=== PATIENT | female | born 1980 | race Caucasian/White ===

== ENCOUNTER 2018-05-22 09:39 | Emergency (ER) | payer BC, OTHER ==
[2018-05-22 09:58] VITALS: BMI 42.9
--- NOTE | 2018-05-22 10:11 | PDOC ---
History of Present Illness - General Chief Complaint: Pain Stated Complaint: ABD PAIN Time Seen by Provider: 05/22/18 10:02 History Source: Patient - History of Present Illness Timing/Duration: reports: intermittent Quality: reports: severe, sharpness Past History - Past Medical History Allergies/Adverse Reactions: Allergies Allergy/AdvReac Type Severity Reaction Status Date / Time No Known Allergies Allergy Verified 05/22/18 09:55 Home Medications: Ambulatory Orders Hydrochlorothiazide 25 mg PO DAILY #30 tablet 05/22/18 Hydrocodone/Ibuprofen [VICOPROFEN 7.5/200 mg [NF MEDICATION]] 1 tab PO Q6H #8 tablet MDD 4 doses 05/22/18 Ibuprofen [Motrin -] 800 mg PO Q6H #30 tablet 05/22/18 Metoprolol Succinate [Toprol Xl] 100 mg PO DAILY #30 tab.er.24h 05/22/18 Metoprolol Tartrate [Lopressor -] 50 mg PO BID 05/22/18 COPD: No HTN: Yes (last took BP med on monday) - Immunization History Immunization Up to Date: Yes - Suicide/Smoking/Psychosocial Hx Smoking History: Never smoked Review of Systems - Review of Systems Constitutional: No: Chills, Fever ABD/GI: No: Blood Streaked Bowels, Constipated, Diarrhea, Nausea, Rectal Bleeding, Tarry Stools : No: Burning, Dysuria, Discharge, Frequency, Flank Pain, Hematuria Musculoskeletal: No: Back Pain *Physical Exam - Vital Signs Last Vital Signs Temp Pulse Resp BP Pulse Ox 97.9 F 72 18 225/125 H 100 05/22/18 09:56 05/22/18 09:56 05/22/18 09:56 05/22/18 09:56 05/22/18 09:56 - Physical Exam General Appearance: Yes: Appropriately Dressed. No: Apparent Distress HEENT: positive: Normal Voice Neck: positive: Supple Female Pelvic Exam: positive: normal external exam, adnexal tenderness (on the R ), vaginal bleeding. negative: CMT Gastrointestinal/Abdominal: positive: Tender (poorly localized ttp to suprapubic area, NT over mcburneys) Integumentary: positive: Dry, Warm Neurologic: positive: Fully Oriented, Alert, Normal Mood/Affect Moderate Sedation - Procedure Monitoring Vital Signs: Procedure Monitoring Vital Signs Temperature 97.9 F 05/22/18 09:56 Pulse Rate 72 05/22/18 09:56 Respiratory Rate 18 05/22/18 09:56 Blood Pressure 225/125 H 05/22/18 09:56 O2 Sat by Pulse Oximetry (%) 100 05/22/18 09:56 ED Treatment Course - LABORATORY CBC & Chemistry Diagram: 05/22/18 10:40 05/22/18 10:40 Medical Decision Making - Medical Decision Making 05/22/18 10:07 38 yo F, obesity, HTN, non-compliant w/ meds, s/p removal of ? intrauterine polyp 02/20, currently on OCP (to regulate menses per pt), here w/ severe, intermittent R pelvic pain x 4 days. States she is currently on her menses and usually has some cramping but that current pain more severe and not improving w / OTC meds. Had 1 e/o n/v this am. Denies abnl vag dc, foul odor, dysuria, f/ c. No change in BM. Sexually active w longtime male partner. No h/o STDs per pt See exam Pelvic pain R/o torsion vs PID vs UTI vs preg (less likely as pt on menses and taking OCPs) vs appy -pain control -labs -pelvic US Hypertension Non-complaint w/ meds BP sig elevated at triage Pt asymptomatic from BP standpoint -will manage w/ home meds and reassess 05/22/18 12:21 Labs and US read as normal. Given pt's initial level of discomfort, will scan abd r/o appy at this time 05/22/18 14:52 CT a/p unremarkable. Pt reports that abd pain has since resolved and now requesting food. Rpt BP now 188/118, pt c/o JOHNSON at this time. Will scan head and continue to manage BP in ED 05/22/18 15:46 CTH read as neg. Rpt BP now 211/108. Discussed w/ Dr Sears who rec giving an extra dose of pt's home meds and discuss f/u w/ pt's PMD (Dr Enoc Awan in [place]) 05/22/18 16:01 Case d/w Dr Awan, states he has been limited in medications he can use to treat pt's HTN 2/2 patient's plan on starting fertility treatment in near future. Per MD, BP control is priority at this point and wants pt started on 25 mg HCTZ QD and toprol XL 100 mg QD. Wants pt to f/u with him tomorrow. Of note, pt reports that JOHNSON resolved once she ate a sandwich in ED. Has since been given 2nd dose of metoprolol. Will reassess. Anticipate dc w/ PMD f/u this week. 05/22/18 16:41 Final BP 175/111. Pt asymptomatic at this time and appears well. Will dc to start new BP meds and f/u with PMD in the am. Strict return precautions given *DC/Admit/Observation/Transfer Diagnosis at time of Disposition: Pelvic pain, Elevated blood pressure reading - Discharge Dispostion Disposition: HOME Condition at time of disposition: Improved - Prescriptions Prescriptions: Hydrochlorothiazide 25 mg PO DAILY #30 tablet Hydrocodone/Ibuprofen [VICOPROFEN 7.5/200 mg [NF MEDICATION]] 1 tab PO Q6H #8 tablet MDD 4 doses Ibuprofen [Motrin -] 800 mg PO Q6H #30 tablet Metoprolol Succinate [Toprol Xl] 100 mg PO DAILY #30 tab.er.24h - Referrals Referrals: Enoc Awan [Primary Care Provider] - - Patient Instructions Printed Discharge Instructions: DI for High Blood Pressure, DI for Pelvic Pain Additional Instructions: The cause of your pelvic pain is unclear but may be due to your menses Your labs, ultrasound and CAT scan were all normal Please take motrin as directed for pain. If you need further pain relief, take 1 vicoprofen (which has hydrocodone and about 200mg in it) Follow up with your [employer] and PMD Regarding your blood pressure, you were started on new meds as discussed with your PMD who wants you to call office tomorrow for an appointment this week Return to ER for worsening of symptoms - Post Discharge Activity Forms/Work/School Notes: Back to Work
[2018-05-22 10:45] LABS: BASO % 0.9 % (0-2.0); HEMATOCRIT 33.6 % (32.4-45.2); LYMPH % 21.1 % (8-40); MCH 21.2 pg (25.7-33.7); MCHC 32.8 g/dl (32.0-36.0); MEAN CELL VOLUME 64.5 fl (80-96); MEAN PLT VOLUME 8.6 fl (7.5-11.1); MONO % 4.8 % (3.8-10.2); NEUT % 71.2 % (42.8-82.8); PLATELET COUNT 295 K/MM3 (134-434); RBC 5.22 M/mm3 (3.60-5.2); RDW 17.5 % (11.6-15.6); WHITE BLOOD COUNT 7.6 K/mm3 (4.0-10.0)
[2018-05-22] MEDS ORDERED: KETOROLAC TROMETHAMINE 60 MG/2 ML VIAL IVPUSH ONE (10:47)
[2018-05-22 10:48] LABS: URINE APPEARANCE CLOUDY; URINE BILIRUBIN NEGATIVE (<2.0 mg/dL); URINE COLOR RED; URINE GLUCOSE (UA) NEGATIVE (NEGATIVE); URINE KETONE NEGATIVE (NEGATIVE); URINE LEUK ESTERASE NEGATIVE (NEGATIVE); URINE NITRITE NEGATIVE (NEGATIVE); URINE PROTEIN 2+ (NEGATIVE); URINE UROBILINOGEN NEGATIVE mg/dL (0.2-1.0)
[2018-05-22] MEDS ORDERED: morphine CARPU-JECT 4 MG/1 ML DISP.SYRIN IM ONE (10:48)
[2018-05-22 10:50] LABS: HCG,QUALITATIVE URINE Negative
[2018-05-22] MEDS ORDERED: morphine SULFATE 4 MG/ML VIAL ONE (10:51)
[2018-05-22] MEDS ORDERED: KETOROLAC TROMETHAMINE 60 MG/2 ML VIAL ONE (10:52)
[2018-05-22 10:54] LABS: URINE MUCUS FEW; YEAST RARE
[2018-05-22 11:24] LABS: ALBUMIN 3.6 g/dl (3.4-5.0); ALK PHOS 69 U/L (45-117); ANION GAP 7 MMOL/L (8-16); BILIRUBIN,TOTAL 0.4 mg/dL (0.2-1); BLOOD UREA NITROGEN 10 mg/dL (7-18); CALCIUM 8.7 mg/dL (8.5-10.1); CHLORIDE 107 mmol/L (98-107); CO2 25 mmol/L (21-32); GLUCOSE,RANDOM 99 mg/dL (74-106); POTASSIUM 4.1 mmol/L (3.5-5.1); SGOT/AST 13 U/L (15-37); SGPT/ALT 18 U/L (13-61); SODIUM 138 mmol/L (136-145); TOT PROT 7.4 g/dl (6.4-8.2)
[2018-05-22] MEDS ORDERED: ONDANSETRON *ODT* 4 MG TABLET SL ONE (12:14)
[2018-05-22] MEDS ORDERED: METOPROLOL TARTRATE 50 MG TABLET (FP) PO ONE ×2 (12:14→15:45)
[2018-05-22] MEDS ORDERED: ONDANSETRON 4 MG/2 ML VIAL ONE (12:29)
[2018-05-22] MEDS ORDERED: METOPROLOL TARTRATE 50 MG TABLET (FP) ONE ×2 (12:29→16:04)
[2018-05-22 12:39] LABS: ANISOCYTOSIS 2+; MACROCYTOSIS 0; PLATELET ESTIMATE NORMAL
[2018-05-22] MEDS ORDERED: ONDANSETRON 4 MG/2 ML VIAL IVPUSH ONE (13:05)
[2018-05-22] MEDS ORDERED: METOCLOPRAMIDE HCL INJECTION 10 MG/2 ML VIAL IVPB ONE (15:34)
[2018-05-22] MEDS ORDERED: METOCLOPRAMIDE HCL INJECTION 10 MG/2 ML VIAL ONE (16:03)
[2018-05-22 16:56] VITALS: BP 175/111; PULSE 64; TEMP 97.8
== END 2018-05-22 16:56 | disposition home or self-care (01) ==
LOC: JER 09:39
PROC: 3E0333Z Introduction of Anti-inflammatory into Peripheral Vein, Percutaneous Approach (ICD-10-PCS; principal; 2018-05-22)
PROC: 3E023NZ Introduction of Analgesics, Hypnotics, Sedatives into Muscle, Percutaneous Approach (ICD-10-PCS; 2018-05-22)
PROC: 3E033GC Introduction of Other Therapeutic Substance into Peripheral Vein, Percutaneous Approach (ICD-10-PCS; 2018-05-22)
DX: I10 Essential (primary) hypertension (principal); E66.9 Obesity, unspecified
CPT/HCPCS: 36415; 70450-TC; 74177-TC; 76830-TC; 80053; 81003; 81015; 84703; 85025; 87086; 87491; 87591; 99282-25

== ENCOUNTER 2021-08-11 16:30 | Emergency (ER) | payer BC ==
[2021-08-11 17:15] VITALS: BP 126/83; PULSE 97; TEMP 99.6; BMI 43.7
[2021-08-11] MEDS ORDERED: SODIUM CHLORIDE 1,000 ML IV STA (18:47)
[2021-08-11] MEDS ORDERED: METOCLOPRAMIDE HCL INJECTION 10 MG/2 ML VIAL IM ONE (18:47)
[2021-08-11] MEDS ORDERED: METOCLOPRAMIDE HCL INJECTION 10 MG/2 ML VIAL ONE (19:22)
[2021-08-11 20:02] LABS: PH,URINE 5.5 (5.0-8.0); URINE APPEARANCE CLEAR; URINE BILIRUBIN NEGATIVE (NEGATIVE); URINE COLOR YELLOW; URINE GLUCOSE (UA) NEGATIVE (NEGATIVE); URINE KETONE NEGATIVE (NEGATIVE); URINE LEUK ESTERASE NEGATIVE (NEGATIVE); URINE NITRITE NEGATIVE (NEGATIVE); URINE PROTEIN NEGATIVE (NEGATIVE); URINE UROBILINOGEN 0.2 mg/dL (0.2-1.0)
[2021-08-11 20:05] LABS: HCG,QUALITATIVE URINE Negative
[2021-08-11 20:09] LABS: BASO % 0.6 % (0-2.0); EOS % 1.3 % (0-4.5); HEMATOCRIT 33.7 % (32.4-45.2); LYMPH % 20.6 % (8-40); MCH 22.8 pg (25.7-33.7); MCHC 32.6 g/dl (32.0-36.0); MEAN CELL VOLUME 70.1 fl (80-96); MEAN PLT VOLUME 8.3 fl (7.5-11.1); MONO % 5.3 % (3.8-10.2); NEUT % 72.2 % (42.8-82.8); PLATELET COUNT 239 10^3/uL (134-434); RDW 17.1 % (11.6-15.6); WHITE BLOOD COUNT 8.1 K/mm3 (4.0-10.0)
[2021-08-11 20:33] LABS: CALCIUM 8.6 mg/dL (8.5-10.1)
[2021-08-11 20:34] LABS: ALBUMIN 3.1 g/dl (3.4-5.0); BLOOD UREA NITROGEN 12.8 mg/dL (7-18)
[2021-08-11 20:37] LABS: CREATININE 0.9 mg/dL (0.55-1.3)
[2021-08-11 20:38] LABS: BILIRUBIN,TOTAL 0.4 mg/dL (0.2-1); TOT PROT 6.8 g/dl (6.4-8.2)
[2021-08-11 20:56] LABS: PLATELET ESTIMATE ADEQUATE
== END 2021-08-11 21:03 | disposition home or self-care (01) ==
LOC: JER 16:30
PROC: 3E0337Z Introduction of Electrolytic and Water Balance Substance into Peripheral Vein, Percutaneous Approach (ICD-10-PCS; principal; 2021-08-11)
PROC: 3E023GC Introduction of Other Therapeutic Substance into Muscle, Percutaneous Approach (ICD-10-PCS; 2021-08-11)
DX: A08.4 Viral intestinal infection, unspecified (principal)
CPT/HCPCS: 36415; 80053; 81003; 83690; 84703; 85025; 99284-25

== ENCOUNTER 2021-11-04 04:07 | Day surgery (SDC) | payer BC ==
[2021-11-02 10:42] VITALS: BMI 42.9
[~2021-11-04 04:07] MED LIST: ceFAZolin SODIUM 1 GM VIAL IVPB ONE
[2021-11-04] MEDS ORDERED: ACETAMINOPHEN 325 MG TABLET (FP) PO PRN (12:43)
[2021-11-04] MEDS ORDERED: IBUPROFEN 400 MG TABLET (FP) PO PRN (12:43)
[2021-11-04] MEDS ORDERED: FENTANYL CITRATE/PF 50 MCG/ML VIAL ONE ×4 (13:05→14:37)
[2021-11-04] MEDS ORDERED: PROPOFOL 20 ML ONE ×2 (13:05→13:30)
[2021-11-04] MEDS ORDERED: MIDAZOLAM HCL 2 MG/2 ML SINGLE DOSE VIAL ONE (13:06)
[2021-11-04] MEDS ORDERED: ceFAZolin SODIUM 1 GM VIAL IVPB ONE (13:20)
[2021-11-04] MEDS ORDERED: PROMETHAZINE HCL 25 MG/1 ML VIAL IVPB PRN (14:02)
[2021-11-04] MEDS ORDERED: LACTATED RINGERS SOLUTION 1,000 ML IV SCH (14:15)
[2021-11-04 17:46] VITALS: BP 122/70; PULSE 89; TEMP 97.9
== END 2021-11-04 16:30 | disposition home or self-care (01) ==
LOC: JASU-SURG 04:07
PROVIDERS: ATTEND Obstetrics & Gynecology
PROC: 0UDB8ZX Extraction of Endometrium, Via Natural or Artificial Opening Endoscopic, Diagnostic (ICD-10-PCS; principal; 2021-11-04 13:00)
DX: N92.1 Excessive and frequent menstruation with irregular cycle (principal)
CPT/HCPCS: 88305-TC; 94760

== ENCOUNTER 2022-01-13 19:43 | Emergency (ER) | payer BC ==
[2022-01-13 19:59] VITALS: BP 147/88; PULSE 80; RESP 19; TEMP 97.8; BMI 42.9
[2022-01-13] MEDS ORDERED: LACTATED RINGERS SOLUTION 1,000 ML/1,000 ML INFUS.BAG IV STA (21:33)
[2022-01-13 22:20] LABS: BASO % 0.4 % (0-2.0); EOS % 1.8 % (0-4.5); HEMATOCRIT 29.1 % (32.4-45.2); HEMOGLOBIN 9.2 GM/dL (10.7-15.3); MCHC 31.6 g/dl (32.0-36.0); MEAN PLT VOLUME 8.4 fl (7.5-11.1); MONO % 9.7 % (3.8-10.2); NEUT % 64.1 % (42.8-82.8); PLATELET COUNT 250 10^3/uL (134-434); RBC 4.78 M/mm3 (3.60-5.2); RDW 19.3 % (11.6-15.6); WHITE BLOOD COUNT 5.4 K/mm3 (4.0-10.0)
[2022-01-13 22:21] LABS: MCH 19.3 pg (25.7-33.7)
[2022-01-13] MEDS ORDERED: ONDANSETRON 4 MG/2 ML VIAL IVPUSH ONE (22:27)
[2022-01-13 22:29] LABS: INR 1.06 (0.83-1.09); PROTHROMBIN TIME (PATIENT) 12.2 SEC (9.7-13.0)
[2022-01-13 22:31] LABS: ACTIVATED PTT 24.6 SECONDS (25.2-36.5)
[2022-01-13] MEDS ORDERED: ONDANSETRON 4 MG/2 ML VIAL ONE (22:34)
[2022-01-13] MEDS ORDERED: SODIUM CHLORIDE 1,000 ML IV ONE (22:40)
[2022-01-13 22:43] LABS: CALCIUM 8.7 mg/dL (8.5-10.1)
[2022-01-13 22:44] LABS: ALBUMIN 3.2 g/dl (3.4-5.0); BLOOD UREA NITROGEN 6.4 mg/dL (7-18)
[2022-01-13 22:48] LABS: CREATININE 0.9 mg/dL (0.55-1.3)
[2022-01-13 22:49] LABS: BILIRUBIN,TOTAL 0.3 mg/dL (0.2-1); TOT PROT 6.8 g/dl (6.4-8.2)
[2022-01-13 23:21] LABS: ANISOCYTOSIS 3+; MACROCYTOSIS 1+; OVALOCYTE 2+
== END 2022-01-13 23:40 | disposition home or self-care (01) ==
LOC: JER 19:43
PROC: 3E033GC Introduction of Other Therapeutic Substance into Peripheral Vein, Percutaneous Approach (ICD-10-PCS; principal; 2022-01-13)
DX: R19.7 Diarrhea, unspecified (principal)
CPT/HCPCS: 36415; 80053; 84703; 85025; 85610; 85730; 86850; 86900; 86901; 87045; 87046; 99284-25

== ENCOUNTER 2024-03-29 20:23 | Emergency (ER) | payer BC ==
[2024-03-29 20:33] VITALS: RESP 18; TEMP 98.5; BMI 48.0
[2024-03-29] MEDS ORDERED: IBUPROFEN 400 MG TABLET (FP) PO ONE (21:25)
[2024-03-29] MEDS: IBUPROFEN 400 MG TABLET (FP) PO ONE (21:42)
[2024-03-29 21:52] LABS: BASO % 1.1 % (0-2.0); EOS % 1.2 % (0-4.5); HEMATOCRIT 29.5 % (32.4-45.2); HEMOGLOBIN 9.4 GM/dL (10.7-15.3); LYMPH % 26.5 % (8-40); MCH 22.3 pg (25.7-33.7); MEAN CELL VOLUME 69.8 fl (80-96); MONO % 4.9 % (3.8-10.2); NEUT % 66.3 % (42.8-82.8); PLATELET COUNT 362 10^3/uL (134-434); RBC 4.22 M/mm3 (3.60-5.2); WHITE BLOOD COUNT 10.2 K/mm3 (4.0-10.0)
[2024-03-29 21:54] LABS: EPI CELLS 10 /uL (0-25.1); HYALINE CASTS 0 /uL (0-3.1); URINE APPEARANCE CLOUDY; URINE BACTERIA 29 /uL (0-1359); URINE BILIRUBIN NEGATIVE (NEGATIVE); URINE COLOR RED; URINE GLUCOSE (UA) NEGATIVE (NEGATIVE); URINE KETONE NEGATIVE (NEGATIVE); URINE LEUK ESTERASE TRACE (NEGATIVE); URINE NITRITE NEGATIVE (NEGATIVE); URINE PROTEIN TRACE (NEGATIVE); URINE RBC 10993 /uL (0-23.9); URINE UROBILINOGEN 0.2 mg/dL (0.2-1.0); URINE WBC 30 /uL (0-25.8)
[2024-03-29] MEDS ORDERED: ACETAMINOPHEN INJECTION 100 ML ONE (21:56)
[2024-03-29 21:57] LABS: INR 1.08 (0.83-1.09); PROTHROMBIN TIME (PATIENT) 12.4 SEC (9.7-13.0)
[2024-03-29] MEDS: ACETAMINOPHEN 1000 MG/100 ML BAG IVPB ONE (21:57)
[2024-03-29 22:28] LABS: POTASSIUM 4.2 mmol/L (3.5-5.1)
[2024-03-29 22:30] LABS: ALBUMIN 3.5 g/dl (3.4-5.0); CALCIUM 9.2 mg/dL (8.5-10.1)
[2024-03-29 22:31] LABS: BLOOD UREA NITROGEN 14.8 mg/dL (7-18)
[2024-03-29 22:35] LABS: BILIRUBIN,TOTAL 0.2 mg/dL (0.2-1); TOT PROT 7.1 g/dl (6.4-8.2)
[2024-03-29 23:06] LABS: HIV INTERPRETATION NEGATIVE (NEGATIVE)
[2024-03-30 01:23] VITALS: BP 123/66
[2024-03-30] MEDS ORDERED: KETOROLAC TROMETHAMINE 30 MG/1 ML VIAL ONE (01:27)
[2024-03-30 01:45] VITALS: PULSE 79
[2024-03-30] MEDS: KETOROLAC TROMETHAMINE 30 MG/1 ML VIAL IVPUSH ONE (01:51)
== END 2024-03-30 03:57 | disposition home or self-care (01) ==
LOC: JER 20:23
PROC: 3E033NZ Introduction of Analgesics, Hypnotics, Sedatives into Peripheral Vein, Percutaneous Approach (ICD-10-PCS; principal; 2024-03-29)
PROC: 3E0333Z Introduction of Anti-inflammatory into Peripheral Vein, Percutaneous Approach (ICD-10-PCS; 2024-03-29)
DX: N93.9 Abnormal uterine and vaginal bleeding, unspecified (principal); D25.9 Leiomyoma of uterus, unspecified; R10.2 Pelvic and perineal pain; R11.2 Nausea with vomiting, unspecified; R10.32 Left lower quadrant pain
CPT/HCPCS: 36415; 76830-TC; 80053; 81003; 84703; 85025; 85610; 86803; 86850; 86900; 86901; 87389; 99284-25; J0131

== ENCOUNTER 2024-04-01 19:12 | Emergency (ER) | payer BC ==
[2024-04-01 19:51] VITALS: BP 137/89; PULSE 85; RESP 20; TEMP 98.6; BMI 46.3
== END 2024-04-02 00:21 | disposition home or self-care (01) ==
LOC: JER 19:12
DX: R10.2 Pelvic and perineal pain (principal); R10.32 Left lower quadrant pain
CPT/HCPCS: 76830-TC; 99284-25